=== PATIENT | male | born 1955 | race Caucasian/White ===

== ENCOUNTER 2017-08-12 08:33 | Outpatient (CLI) | payer OTHER ==
[2017-08-12 09:20] LABS: Anion Gap 12 mmol/L (10-20); BUN (Urea Nitrogen) 13 mg/dL (8.4-25.7); Calc. Creatinine Clearance 0 mL/min (70-130); Calcium 9.4 mg/dL (7.8-10.44); Carbon Dioxide 27 mmol/L (23-31); Chloride 108 mmol/L (98-107); Estimated GFR-MDRD 74; Glucose 113 mg/dL (80-115); Potassium 4.4 mmol/L (3.5-5.1); Sodium 143 mmol/L (136-145); Uric Acid 8.1 mg/dL (3.5-7.2)
--- NOTE | 2017-08-12 11:42 | CT ---
CT OF THE ABDOMEN AND PELVIS WITH AND WITHOUT IV CONTRAST: Date: 08/12/17 INDICATION: History of dysuria, right flank pain, and kidney stones. COMPARISON: Prior CT of the abdomen and pelvis without contrast dated 05/24/05. FINDINGS: There is a 4.0 mm stone involving the inferior pole of the right kidney. No definite ureteral calculu s or hydronephrosis is evident. No solid renal lesion is demonstrated. No gross urothelial lesion is identified. 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 The gallbladder is surgically absent. No focal hepatic lesion is evident. The spleen measures 12.0 cm. Adrenal glands and pancreas are normal appearing. There is scattered div erticula involving the colon. The prostate is enlarged, measuring 5.2 cm. No acute osseous abnormalit y is evident. IMPRESSION: 1. Interval development of 4.0 mm inferior pole nonobstructing right renal calculus. 2. No solid renal lesion or hydronephrosis demonstrated. No gross urothelial lesion is evident. 3. Colonic diverticulosis. 4. Prostate enlargement. POS: [facility]
[2017-08-12] MEDS ORDERED: Iopamidol 370 76% 100 ML VIAL ONE (12:33)
== END 2017-08-12 08:34 | disposition home or self-care (01) ==
LOC: CT 08:33
PROVIDERS: ATTEND Urology
DX: Z12.5 Encounter for screening for malignant neoplasm of prostate (principal); R30.0 Dysuria; M54.5 Low back pain; N40.1 Benign prostatic hyperplasia with lower urinary tract symptoms; M10.9 Gout, unspecified; N20.0 Calculus of kidney; K57.30 Diverticulosis of large intestine without perforation or abscess without bleeding; Z87.442 Personal history of urinary calculi
CPT/HCPCS: 36415; 74178; 80048; 84550; G0103

== ENCOUNTER 2018-06-22 11:33 | Outpatient (CLI) | payer MEDICARE, OTHER ==
--- NOTE | 2018-06-22 13:30 | RAD ---
SUPINE ABDOMEN: Date: 06/22/18 HISTORY: Renal calculi. FINDINGS: Small calculus overlies the lower pole of the right kidney measuring approximately 5.0 mm. No other d efinite urinary tract calculus. Bowel gas pattern unremarkable. Degenerative changes of both hips and degenerative changes in the spine. IMPRESSION: 5.0 mm calculus overlies the lower pole of the right kidney. POS: [facility]
== END 2018-06-22 11:34 | disposition home or self-care (01) ==
LOC: RAD 11:33
PROVIDERS: ATTEND Urology
DX: N20.0 Calculus of kidney (principal); Z87.442 Personal history of urinary calculi; N40.1 Benign prostatic hyperplasia with lower urinary tract symptoms; R30.0 Dysuria
CPT/HCPCS: 74018; 81001; 87086